=== PATIENT | female | born 1995 | race Caucasian/White ===

== ENCOUNTER → 2016-06-08 | Outpatient (REF) | payer OTHER ==
[2016-06-08 11:45] LABS: BASO # 0.1 K/mm3 (0.0-0.2); EOS # 0.1 K/mm3 (0.0-0.50); EOS % 1.5 % (0.0-3.0); LARGE UNSTAINED CELL # 0.1 K/mm3 (0.0-0.4); LARGE UNSTAINED CELL % 1.7 % (0.0-4.0); LYMPH # 1.4 K/mm3 (1.5-6.5); MEAN CORPUSCULAR HGB CONC 32.6 g/dl (32.0-36.5); MEAN CORPUSCULAR VOLUME 91.9 fl (80.0-96.0); MONO # 0.3 K/mm3 (0.0-0.8); MONO % 5.3 % (0.0-5.0); NEUTROPHILS # 4.2 K/mm3 (1.8-7.7); NEUTROPHILS % 68.6 % (36.0-66.0); PLATELET COUNT, AUTOMATED 288 k/mm3 (150-450); RED CELL DISTRIBUTION WIDTH 12.9 % (11.5-14.5); WHITE BLOOD COUNT 6.1 K/mm3 (4.0-10.0)
[2016-06-08 12:29] LABS: ALBUMIN 3.6 GM/DL (3.2-5.2); ALBUMIN/GLOBULIN RATIO 1.16 (1.00-1.93); ALKALINE PHOSPHATASE 75 U/L (45-117); ALT/SGPT 19 U/L (12-78); ANION GAP 11 MEQ/L (8-16); AST/SGOT 22 U/L (15-37); BILIRUBIN,TOTAL 0.2 MG/DL (0.2-1.0); BLOOD UREA NITROGEN 12 MG/DL (7-18); CARBON DIOXIDE LEVEL 24 MEQ/L (21-32); CHLORIDE LEVEL 109 MEQ/L (98-107); CREATININE FOR GFR 0.93 MG/DL (0.55-1.02); FREE T4 1.08 NG/DL (0.76-1.46); GLOMERULAR FILTRATION RATE > 60.0 (>60); GLUCOSE, FASTING 80 MG/DL (70-105); POTASSIUM SERUM 4.5 MEQ/L (3.5-5.1); SODIUM LEVEL 144 MEQ/L (136-145); TOTAL PROTEIN 6.7 GM/DL (6.4-8.2)
== END | disposition home or self-care (01) ==
LOC: M SFHCPLAZ 10:02
PROVIDERS: ATTEND Nurse Practitioner Family
DX: R53.83 Other fatigue (principal); F41.8 Other specified anxiety disorders

== ENCOUNTER → 2016-11-02 | Outpatient (CLI) | payer OTHER ==
--- NOTE | 2016-11-02 17:41 | REP ---
LEFT FINGERS, FOUR VIEWS: HISTORY: Injury. There is no acute fracture or dislocation. The joint spaces are normal in appearance. IMPRESSION: There is no acute fracture or dislocation. Signed by Michelet Zamorano MD 11/02/2016 05:47 P
== END ==
LOC: M WUC 17:10
PROVIDERS: ATTEND Physician Assistant
DX: S60.032A Contusion of left middle finger without damage to nail, initial encounter (principal); X58.XXXA Exposure to other specified factors, initial encounter; Y92.9 Unspecified place or not applicable; Y93.9 Activity, unspecified; Y99.9 Unspecified external cause status

== ENCOUNTER → 2016-12-14 | Outpatient (REF) | payer OTHER | LOC: M LAB REF 09:29 | PROVIDERS: ATTEND Physician Assistant | DX: R30.0 Dysuria (principal) ==

== ENCOUNTER → 2017-12-22 | Outpatient (CLI) | payer OTHER ==
[2017-12-22 17:50] LABS: BASO % 0.1 % (0.0-1.0); EOS # 0.1 10^3/uL (0.0-0.50); EOS % 0.7 % (0.0-3.0); HEMATOCRIT 37.6 % (36.0-47.0); HEMOGLOBIN 12.7 g/dl (12.0-15.5); IMMATURE GRANULOCYTE % 0.4 % (0-3.0); LYMPH # 1.8 10^3/uL (1.5-6.5); LYMPH % 18.1 % (24.0-44.0); MEAN CORPUSCULAR HEMOGLOBIN 30.2 pg (27.0-33.0); MEAN CORPUSCULAR HGB CONC 33.8 g/dl (32.0-36.5); MEAN CORPUSCULAR VOLUME 89.3 fl (80.0-96.0); MONO # 0.6 10^3/uL (0.0-0.8); MONO % 5.9 % (0.0-5.0); NEUTROPHILS # 7.4 10^3/uL (1.8-7.7); NEUTROPHILS % 74.8 % (36.0-66.0); PLATELET COUNT, AUTOMATED 241 10^3/uL (150-450); RED BLOOD COUNT 4.21 10^6/uL (4.00-5.40); RED CELL DISTRIBUTION WIDTH 13.4 % (11.5-14.5); WHITE BLOOD COUNT 9.8 10^3/uL (4.0-10.0)
[2017-12-25 07:51] LABS: RUBELLA IgG QUALITATIVE IMMUNE (IMMUNE)
[2017-12-25 07:52] LABS: HBsAg Prenatal NEGATIVE (NEGATIVE)
[2017-12-25 08:19] LABS: HEPATITIS C VIRUS ABY INDEX 0.3 INDEX (<0.8)
[2017-12-25 08:20] LABS: HIV 1&2 SCREEN CENTAUR NEGATIVE (NEGATIVE)
== END ==
LOC: M SMT 13:05
DX: Z36.89 Encounter for other specified antenatal screening (principal); Z3A.11 11 weeks gestation of pregnancy
CPT/HCPCS: 86762

== ENCOUNTER → 2018-01-05 | Outpatient (CLI) | payer OTHER | LOC: M RAD 17:02 | DX: Z34.81 Encounter for supervision of other normal pregnancy, first trimester (principal) | CPT/HCPCS: 76811 ==

== ENCOUNTER → 2018-02-23 | Outpatient (REF) | payer OTHER ==
[2018-02-23 16:01] LABS: CHLAMYDIA DNA AMPLIFICATION NEGATIVE (NEGATIVE); GC DNA AMPLIFICATION NEGATIVE (NEGATIVE)
== END ==
LOC: M LAB REF 13:19
DX: Z34.82 Encounter for supervision of other normal pregnancy, second trimester (principal)

== ENCOUNTER → 2018-03-22 | Outpatient (CLI) | payer OTHER | LOC: M RAD 13:52 | DX: Z34.82 Encounter for supervision of other normal pregnancy, second trimester (principal) | CPT/HCPCS: 76816 ==

== ENCOUNTER → 2018-03-23 | Outpatient (CLI) | payer OTHER ==
[2018-03-23 13:56] LABS: BASO % 0.2 % (0.0-1.0); EOS # 0.1 10^3/uL (0.0-0.50); EOS % 0.6 % (0.0-3.0); HEMOGLOBIN 11.1 g/dl (12.0-15.5); IMMATURE GRANULOCYTE % 0.7 % (0-3.0); LYMPH # 1.8 10^3/uL (1.5-6.5); LYMPH % 15.8 % (24.0-44.0); MEAN CORPUSCULAR HEMOGLOBIN 31.1 pg (27.0-33.0); MEAN CORPUSCULAR HGB CONC 33.6 g/dl (32.0-36.5); MEAN CORPUSCULAR VOLUME 92.4 fl (80.0-96.0); MONO # 0.8 10^3/uL (0.0-0.8); MONO % 7.4 % (0.0-5.0); NEUTROPHILS # 8.5 10^3/uL (1.8-7.7); NEUTROPHILS % 75.3 % (36.0-66.0); PLATELET COUNT, AUTOMATED 216 10^3/uL (150-450); RED BLOOD COUNT 3.57 10^6/uL (4.00-5.40); WHITE BLOOD COUNT 11.3 10^3/uL (4.0-10.0)
[2018-03-23 15:23] LABS: GLUCOSE CHALLENGE TEST 1 HOUR 77 MG/DL (LESS THAN 140)
== END ==
LOC: M SMT 09:53
DX: Z34.83 Encounter for supervision of other normal pregnancy, third trimester (principal)
CPT/HCPCS: 82950

== ENCOUNTER → 2018-05-10 | Outpatient (REF) | payer OTHER | LOC: M LAB REF 17:02 | DX: Z36.89 Encounter for other specified antenatal screening (principal) | CPT/HCPCS: 87081 ==

== ENCOUNTER → 2018-05-15 | Outpatient (CLI) | payer OTHER ==
[~2018-05-15] MED LIST: BENA25CA4 PO; IBUP-1114 PO; MAPA500T2 PO; PRENTAB9 PO; TUMS500C PO
--- NOTE | 2018-05-15 15:11 | REP ---
Obstetric sonography: History: Size date discrepancy. Third trimester study. Findings: Scanning through the gravid uterus demonstrates a viable single intrauterine gestation in a cephalic lie. motion is observed and heart rate is recorded at 146 beats per minute. The placenta is anterior grade 2 without evidence of previa. Amniotic fluid is subjectively somewhat low. Amniotic fluid index is 8.4 cm (7.4 to 24.3 cm). Closed cervical length viewed transabdominally is 3.4 cm. No extrauterine abnormalities observed. There has been somewhat less than expected interval growth in the fetus. Low head position renders it difficult to evaluate head and maternal cervix. No anomaly is seen. The following anatomic structures are again identified and felt to be unremarkable: cranium, lungs, four-chamber heart with left and right ventricular outflow tract views, diaphragm, left-sided stomach, three-vessel cord, kidneys and bladder. Biometry chart: BPD 9.3 cm = 38 weeks 0 days HC 32.8 cm = 37 weeks 2 days AC 26.9 cm = 31 weeks 0 days FL 6.4 cm = 33-weeks 0 days HL 5.6 cm = 32 weeks 4 days HC/AC ratio 1.22 (0.91-1.10). Cephalic index normal 0.82. Estimated weight 2053 grams, 4 pounds 8 ounces, less than 3rd percentile for 37 weeks 2 days. S/D ratio in the umbilical cord artery by Doppler slightly elevated at 2.78 (1.60-2.60 ). The S/D ratio in the middle cerebral artery in the head is only slightly higher at 2.86. This may be an indicator of distress. Impression: Viable single intrauterine gestation at 34 weeks 3 days by today's composite sonographic criteria. Expected gestational age estimate based on prior sonography is 36 weeks 6 days. LEXIE by prior sonography June 06, 2018. There is less than expected interval growth, estimated weight less than 3rd percentile for 37 weeks 2 days. The S/D ratios of the middle cerebral artery and umbilical artery are compared and the MCA S/D ratio value is only slightly higher than the UA S/D ratio. This may indicate distress. Electronically Signed by Merritt Cline MD 05/15/2018 03:28 P
== END ==
LOC: M RAD 10:44
PROVIDERS: ATTEND Advanced Practice Midwife
DX: O26.843 Uterine size-date discrepancy, third trimester (principal); Z3A.34 34 weeks gestation of pregnancy

== ENCOUNTER 2018-05-18 15:03 | Inpatient (IN) | payer OTHER ==
[2018-05-18] MEDS: LACTATED RINGER'S 1000 ML IV (14:20)
[2018-05-18 16:52] LABS: HEMATOCRIT 31.9 % (36.0-47.0); HEMOGLOBIN 10.9 g/dl (12.0-15.5); MEAN CORPUSCULAR HEMOGLOBIN 30.6 pg (27.0-33.0); MEAN CORPUSCULAR HGB CONC 34.2 g/dl (32.0-36.5); MEAN CORPUSCULAR VOLUME 89.6 fl (80.0-96.0); PLATELET COUNT, AUTOMATED 207 10^3/uL (150-450); RED BLOOD COUNT 3.56 10^6/uL (4.00-5.40); RED CELL DISTRIBUTION WIDTH 13.4 % (11.5-14.5); WHITE BLOOD COUNT 13.8 10^3/uL (4.0-10.0)
[2018-05-18] MEDS: miSOPROStol 50 MCG 1/2 TAB (S0191) PO ×2 (16:56→20:32)
[2018-05-18 17:03] LABS: AMPHETAMINES URINE REFLEX NEGATIVE (NEGATIVE); BARBITURATES URINE REFLEX NEGATIVE (NEGATIVE); BENZODIAZEPINES URINE REFLEX NEGATIVE (NEGATIVE); CANNABINOIDS URINE REFLEX NEGATIVE (NEGATIVE); COCAINE METABOLITE URINE REFLE NEGATIVE (NEGATIVE); METHADONE URINE REFLEX NEGATIVE (NEGATIVE); OPIATES URINE REFLEX NEGATIVE (NEGATIVE); PHENCYCLIDINE URINE REFLEX NEGATIVE (NEGATIVE)
[2018-05-18] MEDS: OXYMETAZOLINE NASAL SPRAY (AFRIN) (23:49)
[2018-05-19] MEDS: miSOPROStol 50 MCG 1/2 TAB (S0191) PO ×2 (00:49→05:22)
[2018-05-19] MEDS ORDERED: LR 1,000 ML IV (07:27)
[2018-05-19] MEDS ORDERED: OXYTOCIN DRIP 30 UNITS in APPROPRIATE DILUENT 1 EA IV (07:30)
[2018-05-19] MEDS: OXYMETAZOLINE NASAL SPRAY (AFRIN) ×2 (09:00→20:35)
[2018-05-19] MEDS ORDERED: FENTANYL 2MCG/ML ROPIVACAINE 0.2% IN 0.9% NACL 100ML IVBAG As Ordered (09:49)
[2018-05-19] MEDS ORDERED: DOCUSATE SODIUM 100 MG CAP PO (14:00)
[2018-05-19] MEDS ORDERED: METHYLERGONOVINE MALEATE 0.2 MG TAB PO (14:00)
[2018-05-19] MEDS: OXYTOCIN DRIP 30 UNITS in APPROPRIATE DILUENT 1 EA IV (14:00)
[2018-05-19] MEDS ORDERED: ANUSOL HC CREAM 30GM TOP (14:00)
[2018-05-19] MEDS: DIBUCAINE 1% OINTMENT 30GM TOP (19:48)
[2018-05-19] MEDS: IBUPROFEN 800 MG TAB PO (19:48)
[2018-05-20] MEDS: ACETAMINOPHEN 500 MG TAB PO ×2 (01:49→15:15)
[2018-05-20] MEDS: PRENATAL VITAMINS CHEWABLE TABLET PO (08:43)
[2018-05-20] MEDS: IBUPROFEN 800 MG TAB PO ×2 (08:43→16:54)
[2018-05-20] MEDS: OXYMETAZOLINE NASAL SPRAY (AFRIN) ×2 (08:43→21:30)
[2018-05-20] MEDS: MEASLES,MUMPS,RUBELLA VACCINE INJ (MMR-II) (90707) SC (09:46)
[2018-05-20] MEDS: RHOGAM 300 MCG (1500 IU) INJ (J2790) IM (09:46)
[2018-05-21] MEDS: IBUPROFEN 800 MG TAB PO (03:44)
[2018-05-21] MEDS: PRENATAL VITAMINS CHEWABLE TABLET PO (08:36)
[2018-05-21] MEDS: ACETAMINOPHEN 500 MG TAB PO (08:37)
== END 2018-05-21 10:40 | disposition home or self-care (01) | DRG 560 ==
LOC: M LDI 15:03 → M OBS 05-19 15:28
PROC: 3E033VJ Introduction of Other Hormone into Peripheral Vein, Percutaneous Approach (ICD-10-PCS; 2018-05-18)
PROC: 3E0DXGC Introduction of Other Therapeutic Substance into Mouth and Pharynx, External Approach (ICD-10-PCS; 2018-05-18)
PROC: 10E0XZZ Delivery of Products of Conception, External Approach (ICD-10-PCS; principal; 2018-05-19)
PROC: 0HQ9XZZ Repair Perineum Skin, External Approach (ICD-10-PCS; 2018-05-19)
PROC: 10907ZC Drainage of Amniotic Fluid, Therapeutic from Products of Conception, Via Natural or Artificial Opening (ICD-10-PCS; 2018-05-19)
DX: O36.5930 Maternal care for other known or suspected poor fetal growth, third trimester, not applicable or unspecified (principal); O70.0 First degree perineal laceration during delivery; Z37.0 Single live birth; Z3A.37 37 weeks gestation of pregnancy

== ENCOUNTER → 2018-09-04 | Outpatient (REF) | payer OTHER | LOC: M LAB REF 17:47 | PROVIDERS: ATTEND Advanced Practice Midwife | DX: Z12.4 Encounter for screening for malignant neoplasm of cervix (principal) ==

== ENCOUNTER → 2019-01-07 | Outpatient (CLI) | payer OTHER ==
[2019-01-07 13:40] LABS: BASO % 0.2 % (0.0-1.0); EOS % 0.4 % (0.0-3.0); HEMATOCRIT 44.4 % (36.0-47.0); HEMOGLOBIN 14.4 g/dl (12.0-15.5); LYMPH # 1.7 10^3/uL (1.5-6.5); LYMPH % 36.1 % (24.0-44.0); MEAN CORPUSCULAR HEMOGLOBIN 30.4 pg (27.0-33.0); MEAN CORPUSCULAR HGB CONC 32.4 g/dl (32.0-36.5); MEAN CORPUSCULAR VOLUME 93.7 fl (80.0-96.0); MONO # 0.5 10^3/uL (0.0-0.8); MONO % 11.1 % (0.0-5.0); NEUTROPHILS # 2.5 10^3/uL (1.8-7.7); PLATELET COUNT, AUTOMATED 234 10^3/uL (150-450); RED BLOOD COUNT 4.74 10^6/uL (4.00-5.40); WHITE BLOOD COUNT 4.8 10^3/uL (4.0-10.0)
[2019-01-07 14:17] LABS: ALBUMIN 3.9 GM/DL (3.2-5.2); ALT/SGPT 27 U/L (12-78); BILIRUBIN,TOTAL 0.1 MG/DL (0.2-1.0); BLOOD UREA NITROGEN 21 MG/DL (7-18); CALCIUM LEVEL 9.3 MG/DL (8.5-10.1); CARBON DIOXIDE LEVEL 30 MEQ/L (21-32); CHLORIDE LEVEL 102 MEQ/L (98-107); CREATININE FOR GFR 0.93 MG/DL (0.55-1.30); GLOMERULAR FILTRATION RATE > 60.0 (>60); GLUCOSE, FASTING 65 MG/DL (70-100); POTASSIUM SERUM 4.6 MEQ/L (3.5-5.1); SODIUM LEVEL 139 MEQ/L (136-145); TOTAL PROTEIN 7.2 GM/DL (6.4-8.2)
[2019-01-09 00:09] LABS: EBV AB TO NUCLEAR ANTIGEN <18.0 U/mL (0.0-17.9); EBV VIRAL CAPSID AG IgM <36.0 U/mL (0.0-35.9); Lyme Disease IgG/IgM Antibodie <0.91 ISR (0.00-0.90); Lyme Disease IgM Ab Quantitati <0.80 index (0.00-0.79)
== END ==
LOC: M WUC 10:37
PROVIDERS: ATTEND Physician Assistant
DX: R53.83 Other fatigue (principal); J02.9 Acute pharyngitis, unspecified

== ENCOUNTER → 2019-01-31 | Outpatient (CLI) | payer OTHER ==
[~2019-01-31] MED LIST changes: +CYCL10TA PO; +LIDO1PAD TOP; +NAPR500T6 PO; +PRED20TA PO; +ROBA750T4 PO; +TYLETAB14 PO
--- NOTE | 2019-01-31 16:38 | REP ---
Clinical: Lower back pain. Technique: AP, lateral, bilateral oblique and coned-down views of the lumbosacral spine. Findings: Levoconvex scoliosis is appreciated on frontal radiograph. Alignment is maintained. No acute fracture / compression injury or subluxation. Disc spaces appear normal. Impression: Levoconvex scoliosis. Electronically Signed by Rai Poon MD 01/31/2019 04:30 P
== END ==
LOC: M WUC 16:16
PROVIDERS: ATTEND Physician Assistant
DX: M41.9 Scoliosis, unspecified (principal)

== ENCOUNTER 2019-02-01 16:23 | Emergency (ER) | payer OTHER ==
[~2019-02-01] VITALS: Ht 170.2 cm; Wt 59.9 kg
[~2019-02-01 16:23] MED LIST changes: -CYCL10TA PO; -LIDO1PAD TOP; -NAPR500T6 PO; -PRED20TA PO; -ROBA750T4 PO; -TYLETAB14 PO
[2019-02-01] MEDS ORDERED: CYCL10TA PO (17:39)
[2019-02-01] MEDS ORDERED: NAPR500T6 PO (17:39)
[2019-02-01] MEDS ORDERED: KETOROLAC 60 MG/2 ML VIAL (J1885) IM ONE (18:00)
[2019-02-01] MEDS ORDERED: predniSONE 20 MG TAB PO ONE (18:00)
[2019-02-01] MEDS ORDERED: LIDOCAINE 5% (LIDODERM) PATCH TD ONE (18:00)
--- NOTE | 2019-02-01 18:40 | REPVR ---
EXAM: CT Lumbar Spine Without Contrast EXAM DATE/TIME: 02/01/2019 5:49 PM CLINICAL HISTORY: 23 years old, female; Low back pain; Additional info: Severe pain, PT tender, no donna TECHNIQUE: Imaging protocol: Computed tomography images of the lumbar spine without contrast. Radiation optimization: All CT scans at this facility use at least one of these dose optimization techniques: automated exposure control; mA and/or kV adjustment per patient size (includes targeted exams where dose is matched to clinical indication); or iterative reconstruction. COMPARISON: CR SPINE LS COMPLETE 01/31/2019 4:26 PM FINDINGS: No segmental lumbar vertebral malalignment. Vertebral body height and morphology is maintained. No acute fracture or destructive process. Intervertebral disc height is maintained for age. Probable L4-5 and L5-S1 disc bulge. Consider MRI No dilatation of the imaged distal abdominal aorta. No significant abnormality of the imaged retroperitoneum. IMPRESSION: No fracture or other acute osseous abnormality involving the lumbar spine. Suggestion of L4-5 and L5-S1 disc bulge. CT is not diagnostic for evaluation of disc disease and MRI should be considered if clinically warranted. Electronically signed by: Valdo Marie On 02/01/2019 18:40:07 PM
[2019-02-01] MEDS ORDERED: LIDO1PAD TOP (18:49)
[2019-02-01] MEDS ORDERED: ROBA750T4 PO (18:49)
[2019-02-01] MEDS ORDERED: PRED20TA PO (18:49)
[2019-02-01] MEDS ORDERED: TYLETAB14 PO (18:49)
[2019-02-01 18:50] VITALS: BP 138/71
[2019-02-02] MEDS ORDERED: **NOTE PATIENT COMMENT** MISC XX ONE (06:00)
== END 2019-02-01 18:57 | disposition home or self-care (01) ==
LOC: M ED 16:23
DX: M62.830 Muscle spasm of back (principal); M54.16 Radiculopathy, lumbar region; Z79.899 Other long term (current) drug therapy
CPT/HCPCS: 72131; 96372; 99283; J1885

== ENCOUNTER → 2019-02-14 | Outpatient (CLI) | payer OTHER ==
[~2019-02-14] MED LIST changes: +CYCL10TA PO; +LIDO1PAD TOP; +NAPR500T6 PO; +PRED20TA PO; +ROBA750T4 PO; +TYLETAB14 PO
--- NOTE | 2019-02-14 20:22 | REPVR ---
PROCEDURE INFORMATION: Exam: MR Lumbar Spine Without Contrast. Exam date and time: 02/14/2019 3:13 PM Clinical history: 23 years old, female; Low back pain; Additional info: Lumbar radiculopathy TECHNIQUE: Imaging protocol: Multiplanar magnetic resonance images of the lumbar spine without intravenous contrast. COMPARISON: CT Spine, lumbar w/o contrast 02/01/2019 6:20 PM FINDINGS: Vertebrae: Levoscoliosis. Spinal cord: Normal signal. No cord compression. L1-L2: No significant disc disease. No significant spinal stenosis. L2-L3: No significant disc disease. No significant spinal stenosis. L3-L4: Mild annular bulge at L3-L4 with mild flattening of the thecal sac. There is no central or lateral recess stenosis. No foraminal stenosis. L4-L5: Mild annular bulge at L4-L5 with mild flattening of the thecal sac. There is no central or lateral spinal stenosis. No foraminal stenosis. L5-S1: Bulging annulus at L5-S1 with a central disc protrusion effacing the ventral subarachnoid space without central spinal stenosis or neural compromise. No foraminal stenosis. Soft tissues: Unremarkable. IMPRESSION: 1. Mild annular bulges at L3-4 and L4-5 without central lateral spinal stenosis. 2. Bulging annulus at L5-S1 with small central disc extrusion without neural compromise. Electronically signed by: Truong Carballo On 02/14/2019 20:22:21 PM
== END ==
LOC: M RAD 14:01
PROVIDERS: ATTEND Physician Assistant
DX: M54.16 Radiculopathy, lumbar region (principal)

== ENCOUNTER → 2019-07-02 | Outpatient (REF) | payer BC ==
[2019-07-02 16:41] LABS: HEMATOCRIT 42.4 % (36.0-47.0); HEMOGLOBIN 14.1 g/dl (12.0-15.5); MEAN CORPUSCULAR HEMOGLOBIN 30.7 pg (27.0-33.0); MEAN CORPUSCULAR HGB CONC 33.3 g/dl (32.0-36.5); MEAN CORPUSCULAR VOLUME 92.2 fl (80.0-96.0); PLATELET COUNT, AUTOMATED 354 10^3/uL (150-450); WHITE BLOOD COUNT 6.7 10^3/uL (4.0-10.0)
[2019-07-02 16:52] LABS: ALBUMIN 4.2 GM/DL (3.2-5.2); ALT/SGPT 20 U/L (12-78); BILIRUBIN,TOTAL 0.4 MG/DL (0.2-1.0); BLOOD UREA NITROGEN 14 MG/DL (7-18); CALCIUM LEVEL 9.2 MG/DL (8.5-10.1); CARBON DIOXIDE LEVEL 26 MEQ/L (21-32); CHLORIDE LEVEL 106 MEQ/L (98-107); CHOLESTEROL LEVEL 167 MG/DL (<200); CHOLESTEROL RISK RATIO 2.197 (<5); CREATININE FOR GFR 0.79 MG/DL (0.55-1.30); FREE THYROXINE INDEX 2.6 % (1.3-4.8); GLOMERULAR FILTRATION RATE > 60.0 (>60); GLUCOSE, FASTING 91 MG/DL (70-100); HDL CHOLESTEROL 76 MG/DL (>40); LDL CHOLESTEROL 78 MG/DL (<100); NON-HDL-C 91 MG/DL; POTASSIUM SERUM 4.9 MEQ/L (3.5-5.1); SODIUM LEVEL 138 MEQ/L (136-145); T UPTAKE 34 % (30-39); THYROXINE (T4) 7.6 UG/DL (4.5-12.0); TOTAL PROTEIN 7.6 GM/DL (6.4-8.2); TRIGLYCERIDES LEVEL 64 MG/DL (<150)
== END ==
LOC: M SFHCCLAY 12:01
PROVIDERS: ATTEND Nurse Practitioner Family
DX: F41.9 Anxiety disorder, unspecified (principal); Z13.6 Encounter for screening for cardiovascular disorders; E55.9 Vitamin D deficiency, unspecified

== ENCOUNTER → 2023-07-13 | Outpatient (CLI) | payer BC ==
[~2023-07-13] MED LIST changes: +CYCL-707 PO; -CYCL10TA PO
== END ==
LOC: M OUTALCOH 07:51
PROVIDERS: ATTEND Psychiatry & Neurology Psychiatry
DX: F10.10 Alcohol abuse, uncomplicated (principal)

== ENCOUNTER → 2023-07-27 | Outpatient (RCR) | payer BC | LOC: M OUTALCOH 07-21 09:37 | PROVIDERS: ATTEND Psychiatry & Neurology Psychiatry | DX: F14.20 Cocaine dependence, uncomplicated (principal); F10.10 Alcohol abuse, uncomplicated ==

== ENCOUNTER 2023-08-23 16:00 | Outpatient (RCR) | payer BC | END 2023-08-27 | LOC: M OUTALCOH 16:00 | PROVIDERS: ATTEND Psychiatry & Neurology Psychiatry | DX: F14.20 Cocaine dependence, uncomplicated (principal); F10.10 Alcohol abuse, uncomplicated ==

== ENCOUNTER 2023-09-22 08:30 | Outpatient (RCR) | payer BC | END 2023-09-26 | LOC: M OUTALCOH 08:30 | PROVIDERS: ATTEND Psychiatry & Neurology Psychiatry | DX: F14.20 Cocaine dependence, uncomplicated (principal); F10.10 Alcohol abuse, uncomplicated ==

== ENCOUNTER 2023-10-20 08:40 | Outpatient (RCR) | payer BC | END 2023-10-27 | LOC: M OUTALCOH 08:40 | PROVIDERS: ATTEND Psychiatry & Neurology Child & Adolescent Psychiatry | DX: F14.20 Cocaine dependence, uncomplicated (principal); F10.10 Alcohol abuse, uncomplicated ==